=== PATIENT | female | born 1965 ===

== ENCOUNTER 2023-04-18 20:11 | Outpatient (REF) | payer OTHER, SELFPAY ==
[2023-04-25 03:08] LABS: Age Gdln ACOG Testing Note (.); HPV Aptima Positive (Negative); HPV Genotype 16 Negative (Negative); HPV Genotype 18,45 Negative (Negative); IGP, Aptima HPV, rfx 16/18,45 Note (.)
== END 2023-04-18 20:12 | disposition home or self-care (01) ==
LOC: LAB 20:11
PROVIDERS: PCP Family Medicine; Visit Provider Physician Assistant
DX: Z01.419 Encounter for gynecological examination (general) (routine) without abnormal findings (principal)
CPT/HCPCS: 87624; 87625; G0145

== ENCOUNTER 2023-05-16 12:58 | Outpatient (OUT) | payer OTHER, SELFPAY ==
--- NOTE | 2023-05-16 13:01 | MM_ITS ---
Patient Name: JOSE TUTTLE MR#: [id number] : 1965 Exam Date: 05/16/2023 Ordering Doctor: DR Angel Webber . RADIOLOGY REPORT PROCEDURE: MM TOMOSYNTHESIS SCREENING BI COMPARISON: MG MAMM DIAGNOSTIC 3D BRENT CAD, 01/04/2022. MG MAMM DX 3D LT CAD, 07/05/2020. INDICATIONS: breast cancer screening by mammogram Z12.31 Calculator Name NCI Breast Cancer Risk Assessment Tool 5 Year Breast Cancer Risk 1.70% Lifetime Breast Cancer Risk 10.40% Personal Breast Cancer No Personal Ovarian Cancer No Treatments None Family Cancers None LOCATION: [facility] BREAST COMPOSITION: Extremely dense, which lowers the sensitivity of mammography. FINDINGS: DIAGNOSTIC CATEGORY 1--NEGATIVE. NO CHANGE FROM COMPARISON ASSESSMENT. Scattered benign-appearing calcifications are present. RIGHT BREAST: No significant suspicious finding. LEFT BREAST: No significant suspicious finding. RECOMMENDATIONS: ROUTINE MAMMOGRAM AND CLINICAL EVALUATION IN 12 MONTHS. PLEASE NOTE: A NORMAL MAMMOGRAM DOES NOT EXCLUDE THE POSSIBILITY OF BREAST CANCER. A CLINICALLY SUSPICIOUS PALPABLE LUMP SHOULD BE BIOPSIED. Dictated by: Harpal Burrell MD on 05/21/2023 at 13:47 Approved by: Harpal Burrell MD on 05/21/2023 at 13:47
--- OUTSIDE RECORDS SUMMARY | 2023-05-16 13:07 | XMS_ITS | CCD ---
Author Name Unknown Address [address] [place] [address] Organization [facility] Care Team Providers Care Organic Search Lead Name Role Phone WONDERLY, DR JOSE RAFAEL Zamora Admitting Unavailable WONDERLY, DR JOSE RAFAEL Zamora Attending Unavailable NIURKA, DR DONAVAN Mercer Consulting Unavailable WONDERLY, DR JOSE RAFAEL Zamora Primary Care Unavailable WONDERLY, DR JOSE RAFAEL Zamora Consulting Unavailable WONDERLY, DR JOSE RAFAEL Zamora Admitting Unavailable WONDERLY, DR JOSE RAFAEL Zamora Attending Unavailable Indra, DR Rowan Consulting Unavailable WONDERLY, DR JOSE RAFAEL Zamora Primary Care Unavailable WONDERLY, DR JOSE RAFAEL Zamora Consulting Unavailable JOSE BRENNAN Attending Unavailable Problems Problem Classification Problem Date Documented Da te Episodic/Chronic Nonmalignant breast conditions (4 sources) Unspecified lump in the left breast, unspecified quadrant; Translations: [Unspecified lump in the left breast, lower outer quadrant] Onset: 01-04-2022 Episodic Other bone disease and musculoskeletal deformities (1 source) Other specified disorders of bone density and structure, unspecified site; Translations: [OTH D/O BONE DEN STRUCT UNS SITE] Onset: 03-14-2022 Episodic Residual codes; unclassified (4 sources) Asymptomatic menopausal state; Translations: [ASYMPTOMATIC MENOPAUSAL STATE] Onset: 03-09-2022 Episodic Residual codes; unclassified (1 source) Personal history of other specified conditions; Translations: [PERSONAL HISTORY OTH SPEC CONDITION] Onset: 01-07-2022 Episodic Results Test Name Value Interpretation Reference Range Facil ity XR DEXA BONE DENSITYon 03-09 XR DEXA BONE DENSITY EXAMINATION: XR DEXA BONE DENSITY, 03/09/2022 1:34 PM EST HISTORY: Menopause present COMPARISON: 2019 TECHNIQUE: Dual-energy X-ray absorptiometry (DEXA) bone density study performed for the axial skeleton. FINDINGS: Bone mineral density AP spine L1-L4 measures 1.173 g/sq cm. T score -0.1. WHO classification: Normal. Bone mineral density right femoral neck measures 0.813 g/sq cm. T score -1.6. WHO classification: Osteopenia IMPRESSION: Osteopenia. Moderate fracture risk Electronically authenticated by: BILLY BRICENO Date: 2022-03-09 17:08 Normal [facility] MG MAMM DIAGNOSTIC 3D BRENT CA Don 01-04-2022 MG MAMM DIAGNOSTIC 3D BRENT CAD Patient: JOSE TUTTLE Exam Date: 01/04/2022 : 1965 Gender:F Ordering : DR JOSE RAFAEL MCBRIDE Admission #: [id number] Family : Order #: [id number] CLICK HERE TO VIEW EXAM RADIOLOGY REPORT PROCEDURE: MAMMOGRAM DIAGNOSTIC 3D BILATERAL CAD, 01/04/2022, 13:45 ULTRASOUND BREAST LEFT LIMITED, 01/04/2022, 14:17 COMPARISON: MAMMO POST BIOPSY LEFT, 01/01/2020. MG MAMM BRENT DIAG W CAD, 12/17/2019. MG MAMM SCREEN BRENT W CAD, 07/28/2017. MG MAMM DX 3D LT CAD, 07/05/2020. INDICATIONS: History of clinical finding in subject; palpable lump, prior anterior lower-outer quadrant biopsy. Calculator Name NCI Breast Cancer Risk Assessment Tool 5 Year Breast Cancer Risk 1.70% Lifetime Breast Cancer Risk 10.70% Personal Breast Cancer No Personal Ovarian Cancer No Treatments None Family Cancers None LOCATION: [facility] BREAST COMPOSITION: Extremely dense, which lowers the sensitivity of mammography. FINDINGS: DIAGNOSTIC CATEGORY 2--BENIGN FINDING: RIGHT BREAST: No significant suspicious finding. No significant change has occurred. LEFT BREAST: No significant suspicious finding. Faint calcifications within lateral breast, approximately 3 o'clock, stable and not overtly suspicious. No significant change has occurred. Ultrasound evaluation of the lateral breast/lower-outer quadrant demonstrates normal appearing fibroglandular tissue. Annual screening mammography is recommended. RECOMMENDATIONS: ROUTINE MAMMOGRAM AND CLINICAL EVALUATION IN 12 MONTHS. PLEASE NOTE: A NORMAL MAMMOGRAM DOES NOT EXCLUDE THE POSSIBILITY OF BREAST CANCER. A CLINICALLY SUSPICIOUS PALPABLE LUMP SHOULD BE BIOPSIED. Dictated by: Donavan Angulo M.D. on 01/04/2022 at 14:51 Approved by: Donavan Angulo M.D. on 01/04/2022 at 14:53 Normal [facility] US BREAST LEFT LIMITEDon US BREAST LEFT LIMITED Patient: JOSE TUTTLE Exam Date: 01/04/2022 : 1965 Gender:F Ordering : DR JOSE RAFAEL MCBRIDE Admission #: [id number] Family : Order #: [id number] CLICK HERE TO VIEW EXAM RADIOLOGY REPORT PROCEDURE: MAMMOGRAM DIAGNOSTIC 3D BILATERAL CAD, 01/04/2022, 13:45 ULTRASOUND BREAST LEFT LIMITED, 01/04/2022, 14:17 COMPARISON: MAMMO POST BIOPSY LEFT, 01/01/2020. MG MAMM BRENT DIAG W CAD, 12/17/2019. MG MAMM SCREEN BRENT W CAD, 07/28/2017. MG MAMM DX 3D LT CAD, 07/05/2020. INDICATIONS: History of clinical finding in subject; palpable lump, prior anterior lower-outer quadrant biopsy. Calculator Name NCI Breast Cancer Risk Assessment Tool 5 Year Breast Cancer Risk 1.70% Lifetime Breast Cancer Risk 10.70% Personal Breast Cancer No Personal Ovarian Cancer No Treatments None Family Cancers None LOCATION: [facility] BREAST COMPOSITION: Extremely dense, which lowers the sensitivity of mammography. FINDINGS: DIAGNOSTIC CATEGORY 2--BENIGN FINDING: RIGHT BREAST: No significant suspicious finding. No significant change has occurred. LEFT BREAST: No significant suspicious finding. Faint calcifications within lateral breast, approximately 3 o'clock, stable and not overtly suspicious. No significant change has occurred. Ultrasound evaluation of the lateral breast/lower-outer quadrant demonstrates normal appearing fibroglandular tissue. Annual screening mammography is recommended. RECOMMENDATIONS: ROUTINE MAMMOGRAM AND CLINICAL EVALUATION IN 12 MONTHS. PLEASE NOTE: A NORMAL MAMMOGRAM DOES NOT EXCLUDE THE POSSIBILITY OF BREAST CANCER. A CLINICALLY SUSPICIOUS PALPABLE LUMP SHOULD BE BIOPSIED. Dictated by: Donavan Angulo M.D. on 01/04/2022 at 14:51 Approved by: Donavan Angulo M.D. on 01/04/2022 at 14:53 Normal [facility] Encounters Encounter Date Encounter Type Care Provider Facility Start: 04-18-2023 End: 04-18-2023 ambulatory JOSE MIKA Not Available Start: 03-09-2022 End: 03-10-[address] JOSE RAFAEL MCBRIDE Facility:[facility] Start: 01-04-2022 End: 09-29-[address] JOSE RAFAEL MCBRIDE Facility:[facility] Payers Date Payer Category Payer Private Health Insurance [id number] 1965 Unknown [id number] 1965 Unknown [id number] 1965 Unknown [id number] 1959 Unknown [id number] 1959 Unknown [id number] Summary Purpose Family History No Family History Records FoundNo Family History Records Found Advance Directives No Advanced Directives Records FoundNo Advanced Directives Records Found Additional Source Comments INFORMATION SOURCE (unrecogn ized section and content) DATE CREATED AUTHOR 03/15/2022 [facility] DATE CREATED AUTHOR AUTHOR'S ORGANIZ ATSOLE 04/19/2023 [facility] EPIC FOR RECORDS PERTAINING TO PATIENTS WHO ARE OR HAVE BEEN ENROLLED IN A CHEMICAL DEPENDENCY/SUBSTANCEABUSE PROGRAM, SOME INFORMATION MAY BE OMITTED. This clinical summary was aggregated from multiple sources. Caution should be exercised in using it in the provision of clinical care. This summary normalizes information from multiple sources, and as a consequence, information in this document may materially change the coding, format and clinical context of patient data. In addition, data may be omitted in some cases. CLINICAL DECISIONS SHOULD BE BASED ON THE PRIMARY CLINICAL RECORDS. [facility] [employer] provides no warranty or guarantee of the accuracy or completeness of information in this document.
== END 2023-05-16 12:59 | disposition home or self-care (01) ==
LOC: MAMMO 12:58
PROVIDERS: PCP Family Medicine; Visit Provider Obstetrics & Gynecology
DX: Z12.31 Encounter for screening mammogram for malignant neoplasm of breast (principal)
CPT/HCPCS: 77063; 77067

== ENCOUNTER 2024-04-23 20:43 | Outpatient (REF) | payer OTHER, SELFPAY ==
--- OUTSIDE RECORDS SUMMARY | 2024-04-23 20:48 | XMS_ITS | CCD ---
Author Organization [facility] Care Team Providers Care Shop Manager Name Role Phone REED, DR MARLENE Zamora Admitting Unavailable WONDERFEROZ, DR MARLENE Zamora Attending Unavailable NIURKA, DR DONAVAN Mercer Consulting Unavailable REED, DR MARLENE Zamora Primary Care Unavailable REED, DR MARLENE Zamora Consulting Unavailable REED, DR MARLENE Zamora Admitting Unavailable WONDERLY, DR MARLENE Zamora Attending Unavailable Indra, DR Rowan Consulting Unavailable WONDERLY, DR MARLENE Zamora Primary Care Unavailable REED, DR MARLENE Zamora Consulting Unavailable MARLENE MCBRIDE Primary Care Unavailable MARIA ISABEL HOWARD Attending Unavailable MARIA ISABEL HOWARD Attending Unavailable MARIA ISABEL HOWARD Referring Unavailable MARLENE MCBRIDE Primary Care Unavailable Marlene Mcbride MD Primary Care Provider FLAVIA BRENNAN Attending Unavailable MARLENE MCBRIDE Attending Unavailable MARCELLO FERNANDES Attending Unavailable FLAVIA BRENNAN Referring Unavailable Marlene Mcbride MD Primary Care Provider Medications Current Medications Medication Drug Class(es) Dates Sig (Normalized) Sig (Original) Calcium Carb-Cholecalciferol (CALCIUM + D3 PO) (7 sources) take 1 tablet by james th once daily Calcium Carb-Cholecalciferol (CALCIUM + D3 PO) Take 1 tablet by mouth Daily Active Multiple Vitamin (MULTIVITAMIN ADULT PO) (7 sources) take 1 tablet by james th once daily Multiple Vitamin (MULTIVITAMIN ADULT PO) Take 1 tablet by mouth Daily Active Completed/Discontinued Medications Medication Drug Class(es) Dates Sig (Normalized) Sig (Original) azithromycin 250 mg oral tablet (2 sources) Macrolide Antimicrobial Start: 01-04-2024 End: 01-09-2024 take 2 tablets by mouth once daily, then take 1 tablet by mouth once daily azithromycin (Zithromax) 250 MG tablet Indications: Acute non-recurrent maxillary sinusitis Take 2 tablets (500 mg) by mouth Daily for 1 day, THEN 1 tablet (250 mg) Daily for 4 days. 6 tablet 01/04/2024 01/09/2024 Problems Active Problems Problem Classification Problem Date Documented Da te Episodic/Chronic Abdominal pain (2 sources) Abdominal pain Onset: 09-09-2023 Episodic Diverticulosis and diverticulitis (1 source) Diverticulitis of intestine, part unspecified, without perforation or abscess without bleeding; Translations: [Diverticulitis of intestine, part unspecified, without perforation or abscess without bleeding] Onset: 09-09-2023 Chronic Headache; including migraine (2 sources) Headache; Translations: [Nonintractable headache, unspecified chronicity pattern, unspecified headache type] 01-04-2024 Episodic Nonmalignant breast conditions (4 sources) Unspecified lump in the left breast, unspecified quadrant; Translations: [Unspecified lump in the left breast, lower outer quadrant] Onset: 01-04-2022 Episodic Other acquired deformities (7 sources) Scoliosis of thoracic spine; Translations: [Scoliosis, unspecified] Onset: 09-10-2023 09-10-2023 Chronic Other bone disease and musculoskeletal deformities (1 source) Other specified disorders of bone density and structure, unspecified site; Translations: [OTH D/O BONE DEN STRUCT UNS SITE] Onset: 03-14-2022 Episodic Other hereditary and degenerative nervous system conditions (7 sources) Essential tremor; Translations: [Essential tremor] Onset: 09-10-2023 09-10-2023 Chronic Other lower respiratory disease (2 sources) Cough; Translations: [Acute cough] 01-04-2024 Episodic Other screening for suspected conditions (not mental disorders or infectious disease) (2 sources) Patient encounter status; Translations: [Encounter for screening mammogram for malignant neoplasm of breast] 04-23-2024 Episodic Other upper respiratory disease (2 sources) Other specified disorders of nose and nasal sinuses; Translations: [Other disease of nasal cavity and sinuses] 01-04-2024 Episodic Other upper respiratory infections (2 sources) Acute maxillary sinusitis; Translations: [Acute maxillary sinusitis, unspecified] 01-18-2024 Episodic Residual codes; unclassified (4 sources) Asymptomatic menopausal state; Translations: [ASYMPTOMATIC MENOPAUSAL STATE] Onset: 03-09-2022 Episodic Residual codes; unclassified (1 source) Personal history of other specified conditions; Translations: [PERSONAL HISTORY OTH SPEC CONDITION] Onset: 01-07-2022 Episodic Residual codes; unclassified (2 sources) Chill; Translations: [Chills (without fever)] 01-18-2024 Episodic Residual codes; unclassified (2 sources) Generalized aches and pains; Translations: [Pain, unspecified] 01-04-2024 Episodic Past or Other Problems Problem Classification Problem Date Documented Da te Episodic/Chronic Other bone disease and musculoskeletal deformities (7 sources) Osteopenia; Translations: [Other specified disorders of bone density and structure, unspecified site] Onset: 09-10-2023 09-10-2023 Episodic Other diseases of veins and lymphatics (7 sources) Peripheral venous insufficiency; Translations: [Venous insufficiency (chronic) (peripheral)] Onset: 09-10-2023 09-10-2023 Episodic Spondylosis; intervertebral disc disorders; other back problems (7 sources) Lumbar radiculopathy; Translations: [Radiculopathy, lumbar region] Onset: 09-10-2023 09-10-2023 Episodic Results Test Name Value Interpretation Reference Range Facility DEXA BONE DENSITYon 03-19-20 DEXA BONE DENSITY Examination: DEXA BONE DENSITY Clinical History: screening Technique: Bone density study was performed. T score values for the lumbar spine and femoral neck and left femoral neck were obtained. Comparison: None Findings: Value for the lumbar spine from L1-L4 is -0.3. Value for the right femoral neck is -1.8. Value for the left femoral neck is -1.6. Findings are compatible with moderate osteopenia with moderate increased fracture risk. No evidence of osteoporosis. IMPRESSION: Impression: Findings compatible with moderate osteopenia with moderate increased fracture risk. ELECTRONICALLY SIGNED BY: Levi Gutierrez M.D. Normal Not Available Laboratory - Microbiology an d Antimicrobial susceptibilityOrdered By: Rashida Kyle on 01-04-2024 SARS-CoV-2 (COVID-19) RNA TIEN+probe Ql (Unsp spec) Negative [facility] No Panel InformationOrdered By: Rashida Kyle on 01-04-2024 FLU A Negative [facility] FLU B Negative [facility] Interpretation and review of laboratory results Normal [facility] BASIC METABOLIC PANLon 06-02 -2024 Anion gap [Moles/Vol] 10 mmol/L Normal 5-15 [facility] Comment on above: Performed By: #### C BCA, BMP #### [facility] ([id number]) [address] [place] [address] 52571 Calcium [Mass/Vol] 9.1 mg/dL Normal 8.5-10.5 [facility] Comment on above: Performed By: #### C BCA, BMP #### [facility] ([id number]) [address] [place] [address] 65168 Chloride [Moles/Vol] 101 mmol/L Normal 98-109 [facility] Comment on above: Performed By: #### C RADHA, BMP #### [facility] ([id number]) [address] [place] [address] 33648 CO2 [Moles/Vol] 23 mmol/L Normal 22-32 [facility] Comment on above: Performed By: #### C BCA, BMP #### [facility] ([id number]) [address] [place] [address] 04637 Creatinine [Mass/Vol] 0.71 mg/dL Normal 0.40-1.00 [facility] Comment on above: Result Comment: METH OD TRACEABLE TO IDMS STANDARD Performed By: #### C RADHA, BMP #### [facility] ([id number]) [address] [place] [address] 40768 eGFR (CKD-EPI) NON-RACE DEPENDENT >90 Normal >59 [facility] Comment on above: Result Comment: Reported eGFR is based on the CKD-EPI 2020 equation that does not use a race coefficient. Performed By: #### C BCA, BMP #### [facility] ([id number]) [address] [place] [address] 77170 Glucose [Mass/Vol] 144 mg/dL High 65-99 [facility] Comment on above: Performed By: #### C BCA, BMP #### [facility] ([id number]) [address] [place] [address] 05447 Potassium [Moles/Vol] 3.5 mmol/L Normal 3.5-5.0 [facility] Comment on above: Performed By: #### C RADHA, BMP #### [facility] ([id number]) [address] [place] [address] 20803 Sodium [Moles/Vol] 134 mmol/L Normal 134-146 [facility] Comment on above: Performed By: #### C RADHA, BMP #### [facility] ([id number]) [address] [place] [address] 55399 Urea nitrogen [Mass/Vol] 11 mg/dL Normal 5-23 [facility] Comment on above: Performed By: #### C RADHA, BMP #### [facility] ([id number]) [address] [place] [address] 56106 CBC AND AUTO DIFFon 09-09-19 24 ABSOLUTE BASOPHIL 0.0 X10E9/L Normal 0.0-0.2 [facility] Comment on above: Performed By: #### C RADHA, BMP #### [facility] ([id number]) [address] [place] [address] 61012 ABSOLUTE NEUTROPHIL 12.6 X10E9/L High 1.5-6.6 [facility] Comment on above: Performed By: #### C RADHA, BMP #### [facility] ([id number]) [address] [place] [address] 45017 Basophils/100 WBC (Bld) 0.3 % Normal [facility] Comment on above: Performed By: #### C RADHA, BMP #### [facility] ([id number]) [address] [place] [address] 68772 Eosinophils (Bld) [#/Vol] 0.0 10*3/uL Normal 0.0-0.4 [facility] Comment on above: Performed By: #### C BCA, BMP #### [facility] ([id number]) [address] [place] [address] 34304 Eosinophils/100 WBC (Bld) 0.1 % Normal [facility] Comment on above: Performed By: #### C BCA, BMP #### [facility] ([id number]) [address] [place] [address] 44523 Erythrocyte distribution width (RBC) [Ratio] 13.4 % Normal 11.5-15.0 [facility] Comment on above: Performed By: #### C RADHA, BMP #### [facility] ([id number]) [address] [place] [address] 91731 Hematocrit (Bld) [Volume fraction] 38.9 % Normal 35-47 [facility] Comment on above: Performed By: #### C RADHA, BMP #### [facility] ([id number]) [address] [place] [address] 82337 Hemoglobin (Bld) [Mass/Vol] 13.5 g/dL Normal 11.7-15.5 [facility] Comment on above: Performed By: #### C BCA, BMP #### [facility] ([id number]) [address] [place] [address] 44217 Lymphocytes (Bld) [#/Vol] 0.9 10*3/uL Low 1.0-3.5 [facility] Comment on above: Performed By: #### C BCA, BMP #### [facility] ([id number]) [address] [place] [address] 45360 Lymphocytes/100 WBC (Bld) 6.2 % Normal [facility] Comment on above: Performed By: #### C BCA, BMP #### [facility] ([id number]) [address] [place] [address] 33573 MCH (RBC) [Entitic mass] 30.5 pg Normal 27-34 [facility] Comment on above: Performed By: #### C RADHA, BMP #### [facility] ([id number]) [address] [place] [address] 41628 MCHC (RBC) [Mass/Vol] 34.7 g/dL Normal 32-36 [facility] Comment on above: Performed By: #### C RADHA, BMP #### [facility] ([id number]) [address] [place] [address] 08124 MCV (RBC) [Entitic vol] 88 fL Normal 80-100 [facility] Comment on above: Performed By: #### C RADHA, BMP #### [facility] ([id number]) [address] [place] [address] 94646 Monocytes (Bld) [#/Vol] 1.1 10*3/uL High 0-0.9 [facility] Comment on above: Performed By: #### C RADHA, BMP #### [facility] ([id number]) [address] [place] [address] 65483 Monocytes/100 WBC (Bld) 7.4 % Normal [facility] Comment on above: Performed By: #### C BCA, BMP #### [facility] ([id number]) [address] [place] [address] 61108 Neutrophils/100 WBC (Bld) 86.0 % Normal [facility] Comment on above: Performed By: #### C BCA, BMP #### [facility] ([id number]) [address] [place] [address] 81384 Platelet mean volume (Bld) [Entitic vol] 8.8 fL Normal 7-12 [facility] Comment on above: Performed By: #### C BCA, BMP #### [facility] ([id number]) [address] [place] [address] [place] [address] Platelets (Bld) [#/Vol] 208 10*3/uL Normal 150-450 [facility] Comment on above: Performed By: #### C RADHA, BMP #### [facility] ([id number]) [address] [place] [address] RBC COUNT 4.42 X10E12/L Normal 3.80-5.20 [facility] Comment on above: Performed By: #### C RADHA, BMP #### [facility] ([id number]) [address] [place] [address] WBC (Bld) [#/Vol] 14.7 10*3/uL High 4.0-11.0 [facility] Comment on above: Performed By: #### C RADHA, BMP #### [facility] ([id number]) [address] [place] [address] CT ABDOMEN AND PELVIS W CONT on 09-09-2023 CT ABDOMEN AND PELVIS W CONT CT ABDOMEN AND PELVIS W CONT CLINICAL HISTORY: Acute abdominal pain. CT ABDOMEN AND PELVIS WITH CONTRAST: 09/27/2023 PROCEDURE: Axial images were obtained through the abdomen and pelvis after oral contrast ingestion and 100 mL Omnipaque 300 intravenously. Coronal and sagittal reconstructions were performed. All CT scans at this facility use dose modulation, iterative reconstruction, and/or weight based dosing when appropriate to reduce radiation dose to as low as reasonably achievable. FINDINGS : Visualized lower lungs and pleural spaces are clear. No focal hepatic or splenic abnormality is present. The pancreas, adrenal glands, and biliary tree appear within normal limits. The kidneys enhance symmetrically. Mild pelvocaliectasis is present bilaterally with ureteral prominence. No urinary bladder irregularity in distal ureteral dilation is evident. Pelvic organs are not optimally evaluated by CT with some heterogeneity around the uterus and adnexa Diverticulosis present through the sigmoid region. There is extensive. Mural thickening within the pelvis with surrounding heterogeneity. No organized extraluminal fluid or free intraperitoneal gas is evident. There is prominent density change within the omentum throughout the lower abdomen and pelvis. No definite mass or thickening is evident focally. Vascular structures enhance normally with no focal irregularity. There are degenerative changes in the lumbar spine with no focal osseous abnormality. Mild dextroconvex thoracolumbar curvature is evident. IMPRESSION: Inflammatory changes in the pelvis appear to be related to diverticulitis extending around the sigmoid colon. There is no abscess or free air is generalized edema within the omentum and an underlying intraperitoneal process is not excluded. Follow-up is recommended. Dilation of the proximal ureters and pelvis may be related to obstruction possibly related to the intrapelvic process. Finalized by Yayo Stephens MD on 09/09/2023 3:21 PM Normal [facility] URINALYSISon 09-09-2023 Bilirubin Ql (U) Negative Normal NEG [facility] Comment on above: Performed By: #### U A #### [facility] ([id number]) [address] [place] [address] 52116 BLOOD/HGB Negative Normal NEG [facility] Comment on above: Performed By: #### U A #### [facility] ([id number]) [address] [place] [address] 84910 Color (U) YELLOW Normal YELLOW [facility] Comment on above: Performed By: #### U A #### [facility] ([id number]) [address] [place] [address] 45917 Glucose Ql (U) Negative Normal NEG [facility] Comment on above: Performed By: #### U A #### [facility] ([id number]) [address] [place] [address] 63513 Ketones Ql (U) Trace Abnormal NEG [facility] Comment on above: Performed By: #### U A #### [facility] ([id number]) [address] [place] [address] 97178 Leukocyte esterase Test strip Ql (U) Negative Normal NEG [facility] Comment on above: Performed By: #### U A #### [facility] ([id number]) [address] [place] [address] 35014 Nitrite Ql (U) Negative Normal NEG [facility] Comment on above: Performed By: #### U A #### [facility] ([id number]) [address] [place] [address] 57709 pH (U) 7.5 [pH] Normal 5.0-8.5 [facility] Comment on above: Performed By: #### U A #### [facility] ([id number]) [address] [place] [address] 04477 Protein Ql (U) Negative Normal NEG [facility] Comment on above: Performed By: #### U A #### [facility] ([id number]) [address] [place] [address] 67733 Specific gravity (U) [Rel density] 1.010 Normal 1.003-1.035 [facility] Comment on above: Performed By: #### U A #### [facility] ([id number]) [address] [place] [address] 14255 TURBIDITY CLEAR Normal CLEAR [facility] Comment on above: Performed By: #### U A #### [facility] ([id number]) [address] [place] [address] 99405 Urobilinogen Qn (U) 0.2 {Tommy'U}/dL Normal <1.1 [facility] Comment on above: Performed By: #### U A #### [facility] ([id number]) [address] [place] [address] 59324 XR DEXA BONE DENSITYon 03-09 XR DEXA BONE DENSITY EXAMINATION: XR DEX A BONE DENSITY, 03/09/2022 1:34 PM EST HISTORY: [...] BILLY BRICENO Date: 2022-03-09 17:08 Normal [facility] MG MAMM DIAGNOSTIC 3D BRENT CA Don 01-04-2022 MG MAMM DIAGNOSTIC 3D BRENT CAD Patient: FLAVIA SHARMA Exam Date: 01/04/2022 : 1965 Gender:F Ordering : DR MARLENE MCBRIDE Admission #: [id number] Family : Order #: [id number] CLICK HERE TO VIEW EXAM RADIOLOGY REPORT [...] Treatments None Family Cancers None LOCATION: [facility] BREAST COMPOSITION: Extremely dense, which lowers [...] Angulo M.D. on 01/04/2022 at 14:[address] [facility] US BREAST LEFT LIMITEDon US BREAST LEFT LIMITED Patient: Joel SHARMA Exam Date: 01/04/2022 : 1965 Gender:F Ordering : DR MARLENE MCBRIDE Admission #: [id number] Family : Order #: [id number] CLICK HERE TO VIEW EXAM RADIOLOGY REPORT [...] Treatments None Family Cancers None LOCATION: [facility] BREAST COMPOSITION: Extremely dense, which lowers [...] Angulo M.D. on 01/04/2022 at 14:[address] [facility] Vital Signs Date Time Vital Sign Value Performing Clinician Marcela dickens 04-23-2024 13:19-0500 Body mass index (BMI) [Ratio] 21.97 kg/m2 Flavia LAINEZ Work Phone: [facility] 04-23-2024 13:19-0500 Body weight 59.88 kg Flavia LAINEZ Work Phone: [facility] 04-23-2024 13:19-0500 Diastolic blood pressure 76 mm[Hg] Flavia LAINEZ Work Phone: [facility] 04-23-2024 13:19-0500 Systolic blood pressure 120 mm[Hg] Flavia LAINEZ Work Phone: [facility] 01-04-2024 13:33-0400 Diastolic blood pressure 88 mm[Hg] Marcello Fernandes [employer] Work Phone: [facility] 01-04-2024 13:33-0400 Heart rate 76 /min Marcello Fernandes [employer] Work Phone: [facility] 01-04-2024 13:33-0400 SaO2% (BldA) [Mass fraction] 99 % Marcello Fernandes [employer] Work Phone: [facility] 01-04-2024 13:33-0400 Systolic blood pressure 120 mm[Hg] Marcello Fernandes [employer] Work Phone: [facility] Healthcare Encounters Encounter Date Encounter Type Care Provider Facility Start: 04-23-2024 End: 04-23-2024 Bamboo flowsheet Flavia LAINEZ Work Phone: [facility] Start: 04-23-2024 End: 04-23-2024 Bamboo flowsheet Flavia LAINEZ Work Phone: [facility] Start: 04-23-2024 End: 04-23-2024 Patient encounter procedure Flavia LAINEZ Work Phone: [facility] Healthcare Work Phone: Start: 04-23-2024 End: 04-23-2024 Periodic preventive med est patient 40-64yrs Flavia LAINEZ Work Phone: [facility] Comment on above: Well woman exam with routine gynecological exam; Breast cancer screening by mammogram Start: 03-25-2024 End: 03-25-2024 Telephone encounter Flavia LAINEZ Work Phone: [facility] Start: 03-19-2024 End: 03-19-2024 ambulatory FLAVIA BRENNAN Not Available Start: 01-04-2024 End: 01-04-2024 Telephone encounter Marlene Mcbride MD Work Phone: [facility] Start: 01-04-2024 End: 01-04-2024 ambulatory MARCELLO FERNANDES Not Available Start: 01-04-2024 End: 01-04-2024 Office outpatient visit 25 minutes Marcello Fernandes [employer] Work Phone: [facility] Comment on above: Acute non-recurrent maxillary sinusitis (Primary Dx); Chills; Body aches; Nonintractable headache, unspecified chronicity pattern, unspecified headache type; Sinus pressure; Acute cough Start: 09-12-2023 End: 09-12-2023 ambulatory MARLENE MCBRIDE Not Available Start: 09-09-2023 End: 09-10-2023 Emergency department patient visit MARIA ISABEL [facility] Start: 09-09-2023 End: 09-09-2023 Emergency department patient visit MARLENE MCBRIDE [facility] Start: 04-18-2023 End: 04-18-2023 ambulatory FLAVIA BRENNAN Not Available Start: 03-09-2022 End: 03-10-[address] MARLENE MCBRIDE Facility:[facility] Start: 01-04-2022 End: 01-05-[address] MARLENE MCBRIDE Facility:[facility] Procedures Date Procedure Procedure Detail Performing Clinician Start: 01-04-2024 STATUS COVID-19/FLU Michael Fernandes [employer] Work Phone: Start: 05-21-2023 Mammography Marlene diop MD Work Phone: Start: 04-18-2023 Microscopic observat ion [Identifier] in Cervix by Cyto stain Marlene Mcbride MD Work Phone: Start: 12-16-2015 Colonoscopy Marlene diop MD Work Phone: Plan of Treatment Date Care Activity Detail Author Start: 04-18-2028 Screening for malignant neoplasm of cervix [facility] Start: 04-18-2026 Screening for malignant neoplasm of cervix Pap Smear [facility] Start: 12-15-2025 Screening for malignant neoplasm of colon [facility] Start: 04-29-2025 End: 04-29-2025 Patient encounter procedure 04/29/2025 1:00 PM EST Office Visit [facility] [address] [place] [id number] Flavia Brennan PA [address] [place] [address] [place] [address] [facility] Start: 05-21-2024 Screening for malignant neoplasm of breast Mammogram [facility] Start: 04-23-2024 End: 06-21-2025 MG Breast - bilateral Screening Bilateral screening mammogram Imaging Routine Breast cancer screening by mammogram Expected: 04/23/2024, Expires: 06/21/2025 [facility] Work Phone: Comment on above: Expected: 04/23/2024 , Expires: 06/21/2025 Start: 04-23-2024 End: 04-23-2024 Patient encounter procedure 04/23/2024 1:00 PM EST Office Visit [facility] [address] [place] [id number] Flavia Brennan PA [address] [place] [address] [place] [address] [facility] Start: 12-09-2023 Influenza vaccination Influenza Vacc ine (#1) [facility] Start: 1965 Screening for malignant neoplasm of colon [facility] THIN PREP TIS PAP AN D HR HPV DNA THIN PREP TIS PAP AND HR HPV DNA Pathology and Cytology Routine Well woman exam with routine gynecological exam Ordered: 04/23/2024 [facility] Comment on above: Ordered: 04/23/2024 Immunizations Immunization Date Immunization Notes Care Provider Fa cili 03-18-2022 influenza, injectabl e, quadrivalent, preservative free Marlene Mcbride MD Work Phone: [facility] 03-18-2022 influenza virus vacc ine, unspecified formulation Marlene Mcbride MD Work Phone: [facility] 01-23-2020 influenza, injectabl e, quadrivalent, preservative free Marlene Mcbride MD Work Phone: [facility] 10-24-2017 tetanus toxoid, redu rom diphtheria toxoid, and acellular pertussis vaccine, adsorbed Marlene Mcbride MD Work Phone: [facility] Payers Date Payer Category Payer Managed Care HMO (unspecified) [id number] 2023 Private Health Insurance [id number] 2022 Private Health Insurance [facility] [id number] 2022-Present [address] [place] [address] [id number] 2022 Private Health Insurance [id number] 1965 Unknown [id number] 1965 Unknown [id number] 1965 Unknown [id number] 1965 Unknown [id number] 1965 Unknown [id number] 1965 Unknown [id number] 1965 Unknown [id number] 1965 Unknown [id number] 1959 Unknown [id number] 1959 Unknown [id number] Social History Date Type Detail Facility Start: 09-12-2023 [facility] Start: 09-12-2023 Tobacco use and exposure Smoke less tobacco non-user [facility] Start: 01-04-2024 End: 04-23-2024 Alcoholic beverage intake Ex-drinker (finding) [facility] Start: 09-05-2023 End: 01-04-2024 Alcoholic beverage intake [facility] Start: 09-05-2023 End: 09-12-2023 Social connection and isolation panel [facility] Do you belong to any clubs or organizations such as temple groups, unions, fraternal or athletic groups, or school groups? No [facility] How often do you att end meetings of the clubs or organizations you belong to? Patient declined [facility] Are you now , , , , never or living with a partner? [facility] How often to you hav e a drink containing alcohol? 2-4 times a month [facility] How many standard dr inks containing alcohol do you have on a typical day? 1 or 2 [facility] How often do you hav e 6 or more drinks on 1 occasion? Never [facility] How hard is it for y ou to pay for the very basics like food, housing, medical care, and heating Not very hard [facility] Do you feel stress - tense, restless, nervous, or anxious, or unable to sleep at night because your mind is troubled all the time - these days [OSQ] Only a little [facility] (I/We) worried whedebbie er (my/our) food would run out before (I/we) got money to buy more. Never true [facility] Start: 04-13-2023 Alcohol Comment Caffeine intak e: 1-2 cups per day [facility] Start: 1965 Sex assigned at Female [facility] Start: 03-26-2023 Gender identity Identifies as female gender (finding) [facility] Start: 03-26-2023 Sexual orientation Heterosexual (fin ding) [facility] History of Present illness Narrative 04-23-2024 FATOU Elam - 04/23/2024 1:00 PM EST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
[2024-04-28 10:07] LABS: Age Gdln ACOG Testing Note (.); HPV Aptima Negative (Negative); IGP, Aptima HPV, rfx 16/18,45 Note (.)
== END 2024-04-23 20:44 | disposition home or self-care (01) ==
LOC: LAB 20:43
PROVIDERS: PCP Family Medicine; Visit Provider Physician Assistant
DX: Z01.419 Encounter for gynecological examination (general) (routine) without abnormal findings (principal)
CPT/HCPCS: 87624; 88175